=== PATIENT | male | born 1955 | race Caucasian/White ===

== ENCOUNTER 2024-11-10 20:09 | Outpatient (CLI) | payer MEDICARE, SELFPAY | END 2024-11-10 20:10 | disposition home or self-care (01) | LOC: AMB 11-11 10:31 | PROVIDERS: Visit Provider Emergency Medicine | DX: R11.2 Nausea with vomiting, unspecified (principal); R53.1 Weakness; R42 Dizziness and giddiness | CPT/HCPCS: A0425; A0427 ==